=== PATIENT | male | born 1995 | race African-American/Black ===

== ENCOUNTER 2016-11-24 03:11 | Emergency (ER) | payer SELFPAY ==
[2016-11-24] MEDS ORDERED: GUAIFENESIN/D-METHORPHAN (200-20 MG) SYRUP 10 ML PO ONE (03:34)
--- NOTE | 2016-11-24 04:14 | ER Document Report ---
ED Respiratory Problem - General Chief Complaint: Cold Symptoms Stated Complaint: FLU LIKE SYMPTOMS Mode of Arrival: Ambulatory Information source: Patient Notes: Patient is a 21-year-old -[place] male who presents to the ER today for 5-6 days of cough with sinus pressure that is worsening, he admits to chills but does not know if he's had a fever or not. He denies any shortness of breath or wheezing, but states to productive cough that keeps him awake at night and is very annoying throughout the day. He has been taking over-the- counter cough suppressants which are not helping very much says. He denies any history of asthma, chest pain. He also admits to "horrible acne" on his face that he has not been able to get rid of with [id number] acne treatments. He states that he does shave. TRAVEL OUTSIDE OF THE [place] IN LAST 30 DAYS: No - Related Data Allergies/Adverse Reactions: No Known Allergies Allergy (Verified 11/24/16 03:14) Past Medical History - General Information source: Patient - Social History Smoking Status: Current Every Day Smoker Chew tobacco use (# tins/day): No Frequency of alcohol use: None Drug Abuse: None Family History: Reviewed & Not Pertinent Patient has suicidal ideation: No Patient has homicidal ideation: No Renal/ Medical History: Denies: Hx Peritoneal Dialysis Psychiatric Medical History: Denies: Hx Depression Past Surgical History: Reports: Hx Orthopedic Surgery - right ankle - Immunizations Hx Diphtheria, Pertussis, Tetanus Vaccination: Yes - [id number] Review of Systems - Review of Systems Constitutional: See HPI EENT: See HPI Cardiovascular: No symptoms reported Respiratory: See HPI Gastrointestinal: No symptoms reported Genitourinary: No symptoms reported Male Genitourinary: No symptoms reported Musculoskeletal: No symptoms reported Skin: No symptoms reported Hematologic/Lymphatic: No symptoms reported Neurological/Psychological: No symptoms reported Physical Exam - Vital signs Vitals: Temp Pulse Resp BP Pulse Ox 98.1 F 105 H 17 143/99 H 98 11/24/16 03:16 11/24/16 03:16 11/24/16 03:16 11/24/16 03:16 11/24/16 03:16 - Notes Notes: PHYSICAL EXAMINATION: GENERAL: Mildly ill-appearing, but in no acute distress. HEAD: Atraumatic, normocephalic. EYES: Pupils equal round and reactive to light, extraocular movements intact, sclera anicteric, conjunctiva are normal. ENT: Right ear canal filled with wax, cannot visualize TM, left ear canal without erythema or foreign body, left TM pearly ley with good bony landmarks, nares with mucoid discharge, oropharynx erythematous without exudates. Moist mucous membranes. Maxillary and frontal sinuses tender to palpation NECK: Normal range of motion, supple with bilateral cervical lymphadenopathy , nontender LUNGS: CTAB and equal. No wheezes rales or rhonchi. HEART: Regular rate and rhythm without murmurs ABDOMEN: Soft, no tenderness. No guarding, no rebound EXTREMITIES: Normal range of motion, no pitting edema. No cyanosis. NEUROLOGICAL: Cranial nerves grossly intact. Normal sensory/motor exams. PSYCH: Normal mood, normal affect. SKIN: Warm, Dry, normal turgor, cystic acne with large papules, erythema and scarring noted to chin and bilateral cheeks of face Course - Re-evaluation Re-evalutation: 11/24/16 05:56 Influenza was negative today. Patient will be treated for sinusitis and bronchitis due to length of time with symptoms, also I will start him on doxycycline for cystic acne and have him follow-up with his primary care provider. This is also the antibiotic I will choose for his sinusitis as well as a result treat both. I will also provide him with cough medication. - Vital Signs Vital signs: Temp Pulse Resp BP Pulse Ox 98.1 F 105 H 17 143/99 H 98 11/24/16 03:16 11/24/16 03:16 11/24/16 03:16 11/24/16 03:16 11/24/16 03:16 Discharge - Discharge Clinical Impression: Bronchitis, Cystic acne Sinusitis Qualifiers: Sinusitis location: unspecified location Chronicity: acute Recurrence: non- recurrent Qualified Code(s): J01.90 - Acute sinusitis, unspecified Condition: Stable Disposition: HOME, SELF-CARE Instructions: Acne ([facility]), Sinusitis ([facility]), Bronchitis ([facility]) Additional Instructions: Return immediately for any new or worsening symptoms. Follow up with primary care provider, call tomorrow to make followup appointment. Prescriptions: Hydrocodone Bit/Homatropine [Hycodan Syrup 5-1.5 mg/5 ml Ud Cup] 5 ml PO Q4HP PRN #120 ml PRN Reason: Doxycycline Hyclate 100 mg PO BID #60 capsule Fluticasone Propionate [Flonase Nasal Brickeys 50 Mcg/Brickeys 16 gm] 2 sprays NASL Q12 #1 inhaler Forms: Return to Work
[2016-11-24 06:17] VITALS: BP 123/63
== END 2016-11-24 05:50 | disposition home or self-care (01) ==
LOC: ER 03:11
DX: J40 Bronchitis, not specified as acute or chronic (principal); L70.0 Acne vulgaris; J01.90 Acute sinusitis, unspecified; R50.9 Fever, unspecified; F17.200 Nicotine dependence, unspecified, uncomplicated
CPT/HCPCS: 99283; 87804; J3490

== ENCOUNTER 2017-01-11 18:44 | Emergency (ER) | payer OTHER ==
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
[2017-01-11] MEDS ORDERED: HYDROCODONE/ACETAMINOPHEN 5-325 MG 6 TAB/DSPK PO PRN (22:59)
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
[2017-01-11 23:33] VITALS: BP 133/78
== END 2017-01-11 23:31 | disposition home or self-care (01) ==
LOC: ER 18:44
DX: M25.512 Pain in left shoulder (principal); S93.401A Sprain of unspecified ligament of right ankle, initial encounter; M25.571 Pain in right ankle and joints of right foot; S49.91XA Unspecified injury of right shoulder and upper arm, initial encounter; V43.62XA Car passenger injured in collision with other type car in traffic accident, initial encounter; Z98.890 Other specified postprocedural states
CPT/HCPCS: 99283; 73610; 73030; L1902

== ENCOUNTER 2017-02-03 00:59 | Emergency (ER) | payer OTHER ==
[2017-02-03] MEDS ORDERED: ALBUTEROL SULFATE HFA (90 MCG/PUFF) 8 GM MDI (1 MDI/ER DISP) IH ONE (04:30)
[2017-02-03] MEDS ORDERED: LEVOFLOXACIN 750 MG TABLET PO ONE (04:56)
--- NOTE | 2017-02-03 04:58 | ER Document Report ---
ED General - General Chief Complaint: Cough Stated Complaint: COUGH Notes: Patient is a pleasant 21-year-old male presents with 2 weeks of cough. Recently his been coughing up less sputum and having little bit increased shortness of breath upon exertion. He has no history of asthma. He is a smoker. No fevers. Vomited once with coughing. TRAVEL OUTSIDE OF THE [place] IN LAST 30 DAYS: No - Related Data Allergies/Adverse Reactions: No Known Allergies Allergy (Verified 02/03/17 01:31) Past Medical History - Social History Smoking Status: Current Every Day Smoker Frequency of alcohol use: None Drug Abuse: None Family History: Reviewed & Not Pertinent Renal/ Medical History: Denies: Hx Peritoneal Dialysis Psychiatric Medical History: Denies: Hx Depression Past Surgical History: Reports: Hx Orthopedic Surgery - right ankle - Immunizations Hx Diphtheria, Pertussis, Tetanus Vaccination: Yes - [id number] Review of Systems - Review of Systems Notes: My Normal Review Basic REVIEW OF SYSTEMS: CONSTITUTIONAL : Denies fever, chills, or sweats. EENT: Denies eye, ear, throat, or mouth pain or symptoms. Denies nasal or sinus congestion. RESPIRATORY: Recurrent coughing. GASTROINTESTINAL: Denies abdominal pain. Posttussive emesis x1. Denies constipation. Last BM: MUSCULOSKELETAL: Denies neck or back pain or joint pain or swelling. SKIN: Denies rash or skin lesions. NEUROLOGICAL: Denies altered mental status or loss of consciousness. Denies headache. Denies weakness or paralysis or loss of use of either side. Denies problems with gait or speech. Denies sensory or motor loss. ALL OTHER SYSTEMS REVIEWED AND NEGATIVE. Physical Exam - Vital signs Vitals: Temp Pulse Resp BP Pulse Ox 98.3 F 100 18 134/94 H 98 02/03/17 01:31 02/03/17 01:31 02/03/17 01:31 02/03/17 01:31 02/03/17 01:31 - Notes Notes: General Appearance: Well nourished, alert, cooperative, no acute distress, no obvious discomfort. Well-appearing Vitals: reviewed, See vital signs table. Head: no swelling or tenderness to the head Eyes: PERRL, EOMI, Conjuctiva clear Mouth: No decreasd moisture Throat: No tonsillar inflammation, No airway obstruction, No lymphadenopathy Neck: Supple, no neck tenderness, No thyromegaly Lungs: Focal wheezing and some diminishment in the right lung garner., No rales , No rhonci, No accessory muscle use, Heart: Normal rate, Regular rythm, No murmur, no rub Extremities: strength 5/5 in all extremities, good pulses in all extremities, no swelling or tenderness in the extremities, no edema. Skin: warm, dry, appropriate color, no rash Neuro: speech clear, oriented x 3, normal affect, responds appropriately to questions. Course - Vital Signs Vital signs: Temp Pulse Resp BP Pulse Ox 98.2 F 84 16 129/79 H 98 02/03/17 05:05 02/03/17 05:05 02/03/17 05:05 02/03/17 05:05 02/03/17 05:05 - Transfer of Care Notes: 02/03/17 06:33 Patient's chest x-ray is consistent with early pneumonia. This is consistent with what I heard on his lung auscultation. Patient will be placed on Levaquin. Will given him an inhaler to help with his cough. I encouraged him to return to ER immediately if has fevers, difficulty breathing, or feels that he is worsening. Patient agrees with plan will be discharged home. Dictation of this chart was performed using voice recognition software; therefore, there may be some unintended grammatical errors. Discharge - Discharge Clinical Impression: Pneumonia Qualifiers: Pneumonia type: due to unspecified organism Laterality: right Lung location: lower lobe of lung Qualified Code(s): J18.1 - Lobar pneumonia, unspecified organism Condition: Good Disposition: HOME, SELF-CARE Additional Instructions: PNEUMONIA: Your examination indicates that you have pneumonia. This is an infection of the lung tissue, usually caused by bacteria or a virus. Symptoms include cough, fever, shaking chills, chest pain, shortness of breath, and coughing up bloody sputum. Treatment for bacterial pneumonia includes rest, antibiotics for 10 to 14 days, increasing your clear liquid intake, a cool mist humidifier at your bedside, and fever medication. Often, a repeat chest X-ray is performed in a few weeks--even if you feel better--to ascertain whether the infection has completely resolved and no underlying lung problem is present. You should call the physician if you develop persistent vomiting, high fever that does not respond to fever medication, increasing shortness of breath , confusion, or lethargy. Also, failure to improve within two to three days is an indication for re-examination. ANTIBIOTIC THERAPY: You have been given an antibiotic prescription. It's important that you take all the medication, unless instructed otherwise by your physician. Failure to complete the entire course can result in relapse of your condition. Common side effects of antibiotics include nausea, intestinal cramping, or diarrhea. Women may develop vaginal yeast infections, and babies can get yeast (thrush) in the mouth following the use of antibiotics. Contact your physician if you develop significant side effects from this medication. Allergy to this antibiotic can result in hives, wheezing, faintness, or itching. If symptoms of allergy occur, stop the medication and call the doctor. LEVOFLOXACIN: You have been given an antibacterial agent, levofloxacin (Levaquin). This medicine is not related to the penicillins, sulfas, cephalosporins, or tetracyclines. It is often given to patients who are allergic to these drugs. It has been chosen for you either because other drugs are not appropriate, or because of the nature of your problem. Levaquin should not be taken with antacids, as these can decrease its effectiveness. It can be taken without regard to meals. LEVAQUIN SHOULD NOT BE TAKEN BY CHILDREN, NURSING WOMEN, OR WOMEN. Although Levaquin is usually well-tolerated, common side effects can include nausea and diarrhea. Contact your doctor if you experience any unusual symptoms while on this medication, such as joint pain or swelling, shortness of breath, wheezing, faintness, or hives. FOLLOW-UP CARE: If you have been referred to a physician for follow-up care, call the physician s office for an appointment as you were instructed or within the next two days. If you experience worsening or a significant change in your symptoms, notify the physician immediately or return to the Emergency Department at any time for re-evaluation. Please use the inhaler as 1 puff every 4 hours as needed for wheezing or cough. please return to the ER immediately if you develop difficulty breathing, fevers , or feel unwell. Prescriptions: Levofloxacin [Levaquin 750 mg Tablet] 750 mg PO DAILY #6 tablet Forms: Return to Work
[2017-02-03 05:12] VITALS: BP 129/79
== END 2017-02-03 05:12 | disposition home or self-care (01) ==
LOC: ER 00:59
DX: J18.1 Lobar pneumonia, unspecified organism (principal); R05 Cough; F17.200 Nicotine dependence, unspecified, uncomplicated
CPT/HCPCS: 99283; 71010; J3490

== ENCOUNTER 2017-03-15 21:40 | Emergency (ER) | payer SELFPAY ==
[2017-03-15] MEDS ORDERED: PENICILLIN V POTASSIUM 500 MG TABLET PO ONE (22:45)
[2017-03-15] MEDS ORDERED: OXYCODONE-ACETAMINOPHEN 5-325 MG TABLET PO ONE (22:46)
--- NOTE | 2017-03-15 22:48 | ER Document Report ---
HPI - HPI Patient complains to provider of: left-sided dental pain Pain Level: 4 Context: Patient is a 21-year-old male that comes emergency bone for chief complaint of dental pain, worse on the left upper side, symptoms have been worse since yesterday. He states he has known cavities, he denies ever having extracted teeth, he denies history of dental infections. He denies sore throat, fever, neck pain. - REPRODUCTIVE Reproductive: DENIES: : - DERM Skin Color: Normal Past Medical History - General Information source: Patient - Social History Smoking Status: Never Smoker Frequency of alcohol use: None Drug Abuse: None Lives with: Family Family History: Reviewed & Not Pertinent Patient has suicidal ideation: No Patient has homicidal ideation: No - Medical History Medical History: Negative Renal/ Medical History: Denies: Hx Peritoneal Dialysis Psychiatric Medical History: Denies: Hx Depression Past Surgical History: Reports: Hx Orthopedic Surgery - right ankle - Immunizations Hx Diphtheria, Pertussis, Tetanus Vaccination: Yes - [id number] Vertical Provider Document - CONSTITUTIONAL General Appearance: WD/WN, No Apparent Distress - INFECTION CONTROL TRAVEL OUTSIDE OF THE [place] IN LAST 30 DAYS: No - HEENT HEENT: Atraumatic, Normocephalic Mouth Diagram: 1 - Several dental cavities noted, no fractures or significant breakdown, no abscesses noted - RESPIRATORY Respiratory: Breath Sounds Normal, No Respiratory Distress O2 Sat by Pulse Oximetry: 97 - CARDIOVASCULAR Cardiovascular: Regular Rate, Regular Rhythm - GI/ABDOMEN Gastrointestinal: Abdomen Soft, Abdomen Non-Tender - MUSCULOSKELETAL/EXTREMETIES Musculoskeletal/Extremeties: MAEW, FROM, Non-Tender Course - Vital Signs Vital signs: Temp Pulse Resp BP Pulse Ox 98.7 F 102 H 22 H 149/90 H 97 03/15/17 21:42 03/15/17 21:42 03/15/17 21:42 03/15/17 21:42 03/15/17 21:42 Discharge - Discharge Clinical Impression: Pain, dental Condition: Stable Disposition: HOME, SELF-CARE Additional Instructions: Take antibiotics to completion as directed. Take the pain medication if needed. Follow-up with a dentist for additional management to prevent this from continuing to happen. Return to emergency department for swelling of the face or any other concerns Prescriptions: Hydrocodone/Acetaminophen [[place]abel 5-325 Tablet] 1 - 2 each PO Q4H PRN #10 tablet PRN Reason: Penicillin V Potassium [Penicillin Vk 500 mg Tablet] 500 mg PO BID #20 tablet Forms: Return to Work, Elevated Blood Pressure
[2017-03-15 23:19] VITALS: BP 135/83
== END 2017-03-15 23:14 | disposition home or self-care (01) ==
LOC: ER 21:40
DX: K02.9 Dental caries, unspecified (principal); K08.89 Other specified disorders of teeth and supporting structures
CPT/HCPCS: 99282

== ENCOUNTER 2017-04-11 02:57 | Emergency (ER) | payer SELFPAY ==
--- NOTE | 2017-04-11 04:58 | ER Document Report ---
HPI - HPI Pain Level: 2 Context: Patient is a 21-year-old male who presents emergency department complaining of acne on his face as well as . Patient states cyst on top of his head. Patient noticed this cyst on top side of the past 2 days with drainage. Nontender to palpation, no heat, denies any fevers, chills. Regarding his acne. Patient states that he has been previously evaluated here initiated on antibiotics and told to follow-up with dermatology. Patient states he never followed up with dermatology. - REPRODUCTIVE Reproductive: DENIES: : - DERM Skin Color: Normal Past Medical History - Social History Smoking Status: Current Every Day Smoker Family History: Reviewed & Not Pertinent Patient has suicidal ideation: No Patient has homicidal ideation: No Renal/ Medical History: Denies: Hx Peritoneal Dialysis Psychiatric Medical History: Denies: Hx Depression Past Surgical History: Reports: Hx Orthopedic Surgery - right ankle - Immunizations Hx Diphtheria, Pertussis, Tetanus Vaccination: Yes - [id number] Vertical Provider Document - CONSTITUTIONAL Agree With Documented VS: Yes Exam Limitations: No Limitations General Appearance: WD/WN, No Apparent Distress - INFECTION CONTROL TRAVEL OUTSIDE OF THE [place] IN LAST 30 DAYS: No - HEENT HEENT: Atraumatic, Normal ENT Exam, Normocephalic - RESPIRATORY O2 Sat by Pulse Oximetry: 98 - NEURO Level of Consciousness: Awake, Alert, Appropriate Motor/Sensory: No Motor Deficit, No Sensory Deficit - DERM Integumentary: Warm, Dry, No Rash Notes: acne with white heads without erythematous base noted over facial hair distribution, scalp area with evidence of hair absence without erythema, tenderness. small palpable area with minimal clear drainage. Course - Re-evaluation Re-evalutation: 04/11/17 06:09 Patient presents emergency department today with acne noted on the face and evidence of an ingrown hair on the top of his head. Antibiotics not without evidence of erysipelas or cellulitis. Patient indicated at this time patient is hemodynamic stable, no acute distress and afebrile. States he is taking antibiotics in the past but is declining any antibiotics for his acne today. Stable for discharge home. - Vital Signs Vital signs: Temp Pulse Resp BP Pulse Ox 97.5 F 74 18 157/95 H 98 04/11/17 03:01 04/11/17 03:01 04/11/17 03:01 04/11/17 03:01 04/11/17 03:01 Discharge - Discharge Clinical Impression: Acne, Ingrown hair Condition: Good Disposition: HOME, SELF-CARE Instructions: Cellulitis ([facility]) Forms: Elevated Blood Pressure Referrals: DERMATOLOGY [Provider Group] - Follow up as needed
[2017-04-11 05:27] VITALS: BP 126/78
== END 2017-04-11 05:19 | disposition home or self-care (01) ==
LOC: ER 02:57
DX: L70.9 Acne, unspecified (principal); L73.1 Pseudofolliculitis barbae; F17.200 Nicotine dependence, unspecified, uncomplicated
CPT/HCPCS: 99282

== ENCOUNTER 2018-05-16 07:18 | Emergency (ER) | payer SELFPAY ==
[2018-05-16 07:22] VITALS: BP 149/92
--- NOTE | 2018-05-16 07:46 | ER Document Report ---
HPI - HPI Patient complains to provider of: toothache Onset: Yesterday Onset/Duration: Gradual Pain Level: 5 Context: 23 yo male c/o lower left broken 3rd molar with decay and gum pain. No fever or facial swelling Associated Symptoms: None Exacerbated by: Other - chewing Relieved by: Denies Similar symptoms previously: No Recently seen / treated by doctor: No - ROS ROS below otherwise negative: Yes Systems Reviewed and Negative: Yes All other systems reviewed and negative - REPRODUCTIVE Reproductive: DENIES: : Past Medical History - General Information source: Patient - Social History Smoking Status: Current Every Day Smoker Frequency of alcohol use: None Drug Abuse: None Lives with: Family Family History: Reviewed & Not Pertinent - Medical History Medical History: Negative Renal/ Medical History: Denies: Hx Peritoneal Dialysis Psychiatric Medical History: Denies: Hx Depression Surgical Hx: Negative Past Surgical History: Reports: Hx Orthopedic Surgery - right ankle - Immunizations Hx Diphtheria, Pertussis, Tetanus Vaccination: Yes - [id number] Vertical Provider Document - CONSTITUTIONAL Agree With Documented VS: Yes Exam Limitations: No Limitations General Appearance: No Apparent Distress - INFECTION CONTROL TRAVEL OUTSIDE OF THE [place]. IN LAST 30 DAYS: No - HEENT Notes: swelling gingiva inside adjacent to 3rd lower left molar, very tender, partial tooth loss with decay. - NECK Neck: Supple. negative: Lymphadenopathy-Left, Lymphadenopathy-Right - NEURO Level of Consciousness: Awake - DERM Integumentary: No Rash Course - Vital Signs Vital signs: Temp Pulse Resp BP Pulse Ox 98.0 F 88 16 149/92 H 100 05/16/18 07:21 05/16/18 07:21 05/16/18 07:21 05/16/18 07:21 05/16/18 07:21 Discharge - Discharge Clinical Impression: Dental pain and decay, Dental abscess Condition: Good Disposition: HOME, SELF-CARE Instructions: Acetaminophen, [facility], Ibuprofen (General) ([facility]) , Penicillin V K ([facility]), Toothache ([facility]), Warm Packs ([facility]) Additional Instructions: Warm compress Penicillin Tylenol Motrin Lidocaine to numb the area See the dentist Prescriptions: Ibuprofen [Motrin 800 mg Tablet] 800 mg PO Q8HP PRN #30 tablet PRN Reason: Penicillin V Potassium [Penicillin Vk 500 mg Tablet] 500 mg PO QID #40 tablet Forms: Return to Work
[2018-05-16] MEDS ORDERED: PENICILLIN V POTASSIUM 500 MG TABLET PO ONE (08:08)
[2018-05-16] MEDS ORDERED: LIDOCAINE 2% VISCOUS SOLN 20 ML UDCUP PO ONE (08:08)
[2018-05-16] MEDS ORDERED: ACETAMINOPHEN 325 MG TABLET PO ONE (08:08)
[2018-05-16] MEDS ORDERED: ONDANSETRON 4 MG TAB.RAPDIS PO ONE (08:08)
[2018-05-16] MEDS ORDERED: IBUPROFEN 800 MG TABLET PO ONE (08:08)
== END 2018-05-16 08:40 | disposition home or self-care (01) ==
LOC: ER 07:18
DX: K04.7 Periapical abscess without sinus (principal); K08.89 Other specified disorders of teeth and supporting structures; K02.9 Dental caries, unspecified; F17.200 Nicotine dependence, unspecified, uncomplicated
CPT/HCPCS: 99282; S0119; J3490

== ENCOUNTER 2018-10-26 18:08 | Emergency (ER) | payer SELFPAY ==
[2018-10-26 18:20] VITALS: BP 169/94
--- NOTE | 2018-10-26 18:44 | ER Document Report ---
ED Oral Problem - General Chief Complaint: Toothache Stated Complaint: JAW SWELLING/TOOTH PAIN Time Seen by Provider: 10/26/18 18:25 Mode of Arrival: Ambulatory Information source: Patient Notes: 23-year-old male presented to ED for complaint of dental pain for the last few days. He states he cracked his tooth about 6 or 8 months ago but it was not hurting. He states he really needs some narcotics because he has no money to buy narcotics or antibiotics. He has no money to go to see a dentist. I explained to him that the emergency room does not use handout narcotics for dental pain that is chronic as he has been here multiple times for dental pain. I offered him a dental block for his pain and he refused he said he did not want any needles. I offered him ibuprofen and he refused stated he did not want ibuprofen. I offered him antibiotics and he said he would take a prescription for penicillin but did not want a antibiotic at this time because he cannot fill the prescription for couple days. I offered him viscous lidocaine for the pain and he refused that also. He states he was at a job orientation today and had to leave due to the pain. He states the [id number] medications are not helping him. Patient is alert oriented respirations regular and unlabored tyler rawls in full sentences. His dental pain is to tooth numbers 17. There is a broken tooth with minimal swelling around the tooth. TRAVEL OUTSIDE OF THE U.S. IN LAST 30 DAYS: No - HPI Patient complains to provider of: Toothache Onset: Other Onset: Gradual - Last few days Quality of pain: Sharp, Throbbing Severity: Moderate Pain Level: 4 Associated symptoms: Toothache Worsened by: Cold Relieved by: Nothing Similar symptoms previously: Yes Recently seen / treated by doctor/dentist: No - Related Data Allergies/Adverse Reactions: No Known Allergies Allergy (Verified 05/16/18 07:18) Past Medical History - General Information source: Patient - Social History Smoking Status: Never Smoker Chew tobacco use (# tins/day): No Frequency of alcohol use: None Drug Abuse: None Lives with: Spouse/Significant other Family History: Reviewed & Not Pertinent Patient has suicidal ideation: No Patient has homicidal ideation: No - Past Medical History Cardiac Medical History: Reports: None Pulmonary Medical History: Reports: None EENT Medical History: Reports: None Neurological Medical History: Reports: None Endocrine Medical History: Reports: None Renal/ Medical History: Reports: None Malignancy Medical History: Reports None GI Medical History: Reports: None Musculoskeletal Medical History: Reports Hx Musculoskeletal Trauma Skin Medical History: Reports None Psychiatric Medical History: Reports: None Traumatic Medical History: Reports: Hx Fractures - Right ankle Past Surgical History: Reports: Hx Orthopedic Surgery - right ankle - Immunizations Hx Diphtheria, Pertussis, Tetanus Vaccination: Yes - [id number] Review of Systems - Review of Systems Constitutional: No symptoms reported EENT: Dental problem Cardiovascular: No symptoms reported Respiratory: No symptoms reported Gastrointestinal: No symptoms reported Genitourinary: No symptoms reported Male Genitourinary: No symptoms reported Musculoskeletal: No symptoms reported Skin: No symptoms reported Hematologic/Lymphatic: No symptoms reported Neurological/Psychological: No symptoms reported Physical Exam - Vital signs Vitals: Temp Pulse Resp BP Pulse Ox 98.8 F 105 H 20 169/94 H 100 10/26/18 18:19 10/26/18 18:19 10/26/18 18:19 10/26/18 18:19 10/26/18 18:19 Interpretation: Normal - General General appearance: Appears well, Alert - HEENT Head: Normocephalic, Atraumatic Eyes: Normal Pupils: PERRL Mouth/Lips: Caries Teeth diagram: 1 - Cracked tooth with mild redness surrounding the tooth mild swelling to the gums surrounding the tooth - Respiratory Respiratory status: No respiratory distress Chest status: Nontender Breath sounds: Normal Chest palpation: Normal - Cardiovascular Rhythm: Regular Heart sounds: Normal auscultation Murmur: No - Abdominal Inspection: Normal Distension: No distension Bowel sounds: Normal Tenderness: Nontender Organomegaly: No organomegaly - Back Back: Normal, Nontender - Extremities General upper extremity: Normal inspection, Nontender, Normal color, Normal ROM, Normal temperature General lower extremity: Normal inspection, Nontender, Normal color, Normal ROM, Normal temperature, Normal weight bearing. No: Axel's sign - Neurological Neuro grossly intact: Yes Cognition: Normal Orientation: AAOx4 Laila Coma Scale Eye Opening: Spontaneous [place] Coma Scale Verbal: Oriented Laila Coma Scale Motor: Obeys Commands [place] Coma Scale Total: 15 Speech: Normal Motor strength normal: LUE, RUE, LLE, RLE Sensory: Normal - Psychological Associated symptoms: Normal affect, Normal mood - Skin Skin Temperature: Warm Skin Moisture: Dry Skin Color: Normal Course - Re-evaluation Re-evalutation: 10/26/18 18:46 Patient states his dental pain is so bad that he cannot stand it but he refuses ibuprofen, refuses a dental block, refuses a dose of antibiotic in the emergency room, and refuses viscous lidocaine. He states he just wants you to give him some narcotics for his pain and a prescription for penicillin that he can fill next week when he has money. I have explained to him that I will give him the prescription for the penicillin but I will not give him narcotics to take home at this time. Presentation is most consistent with likely an infected tooth. Airway is patent. Vitals within normal limits. Patient is able swallow without any difficulty. There is no significant facial swelling. No evidence of Kashif angina, apical abscess, or airway obstruction. Patient will be started on antibiotics. I've instructed to follow-up with dentistry as earliest ability for definitive management. At this time will discharge with return precautions and follow-up recommendations. Verbal discharge instructions given a the bedside and opportunity for questions given. Medication warnings reviewed. Patient is in agreement with this plan and has verbalized understanding of return precautions and the need for primary care follow-up in the next 24-72 hours. - Vital Signs Vital signs: Temp Pulse Resp BP Pulse Ox 98.8 F 105 H 20 169/94 H 100 10/26/18 18:19 10/26/18 18:19 10/26/18 18:19 10/26/18 18:19 10/26/18 18:19 Discharge - Discharge Clinical Impression: Pain due to dental caries Condition: Stable Disposition: HOME, SELF-CARE Additional Instructions: TOOTHACHE: Your pain is due to dental decay. The tooth must be repaired in order for you to feel better. You will, therefore, be referred to a dentist. We do not have dentists on the staff at [facility]. Severe swelling or drainage around a tooth usually means a dental abscess. This also requires evaluation and treatment by the dentist, but antibiotics may be prescribed while awaiting dental treatment. You should be rechecked immediately if you develop major swelling of the face, increasing pain, a lump in the jaw or gums, headache, difficulty swallowing, or fever. PENICILLIN V K: You have been given a prescription for Penicillin VK. Your physician has determined that this is the best antibiotic for your condition. Pen VK can be taken with meals, however more of the antibiotic gets into the bloodstream if it's taken on an empty stomach. Penicillin usually has no side effects. However, allergy to penicillins is common. If you have had an allergic reaction to any drug of the penicillin family, you should never take any other penicillin. Notify your doctor at once if you develop hives, itching, swelling, faintness, or shortness of breath. FOLLOW-UP CARE: You have been referred for follow-up care to the dentists listed below. Call the dentists office for an appointment as you were instructed or within the next two days. If you experience worsening or a significant change in your symptoms, notify the physician immediately or return to the Emergency Department at any time for re-evaluation. [facility] [address], [place] [facility] [address] [place] [address] [facility] [address] [facility] [address] [facility] ([facility]) [facility] [address] [email or web address] [address] [place] [address] Saturday- 8:00am to 5:00 pm Will see patients from other [facility]. Charges based on income and family size and accepts Medicare, Medicaid, and Insurances Will pull molars [facility] [id number] Hours of Operation 8:00 am - 4:30 pm weekdays The following dental offices accept Medicaid: [facility] Dr. Mohamud Dr. Andrade Dr. Langston Dr. Cheek Sudarshan Hahn, Renny, and Rob oral surgery Dr. Urena ([place]) Dr. Craven ([place]) [facility] Drs. Carter ([place]) Dr. Hartmann ([place]) [facility] Dr. Lara ([place]) Drs. Allen and ([place]) Medicaid Care Line Prescriptions: Penicillin V Potassium [Penicillin Vk 500 mg Tablet] 500 mg PO BID #20 tablet Forms: Elevated Blood Pressure
== END 2018-10-26 18:49 | disposition home or self-care (01) ==
LOC: ER 18:08
DX: K08.89 Other specified disorders of teeth and supporting structures (principal); K02.9 Dental caries, unspecified; R22.0 Localized swelling, mass and lump, head
CPT/HCPCS: 99283

== ENCOUNTER 2019-02-23 23:40 | Emergency (ER) | payer SELFPAY ==
[2019-02-24] MEDS ORDERED: ONDANSETRON 4 MG TAB.RAPDIS PO ONE (00:22)
--- NOTE | 2019-02-24 00:22 | ER Document Report ---
ED Medical Screen (RME) - General Chief Complaint: Abdominal Pain Stated Complaint: ABDOMINAL PAIN Time Seen by Provider: 02/24/19 00:21 Mode of Arrival: Ambulatory Information source: Patient Notes: 23-year-old male presented to ED for complaint of abdominal pain and headache has been feeling really sick all day. She is he states that he has been nauseated all day but is only vomited x1 but has not been able to eat or drink today. He states he is also had diarrhea stools x2. The only medical history he has is a fractured ankle with surgery for that. States he does not smoke drinks maybe monthly and he works at construction. He is alert oriented respirations regular and unlabored abdomen is soft tender to palpation with active bowel sounds. Lungs are clear to auscultation. I have greeted and performed a rapid initial assessment of this patient. A comprehensive ED assessment and evaluation of the patient, analysis of test results and completion of medical decision making process will be conducted by an additional ED providers. TRAVEL OUTSIDE OF THE U.S. IN LAST 30 DAYS: No - Related Data Allergies/Adverse Reactions: No Known Allergies Allergy (Verified 05/16/18 07:18) Past Medical History Renal/ Medical History: Denies: Hx Peritoneal Dialysis Musculoskeltal Medical History: Reports Hx Musculoskeletal Trauma Psychiatric Medical History: Denies: Hx Depression Traumatic Medical History: Reports: Hx Fractures - Right ankle Past Surgical History: Reports: Hx Orthopedic Surgery - right ankle - Immunizations Hx Diphtheria, Pertussis, Tetanus Vaccination: Yes - [id number] Physical Exam - Vital signs Vitals: Temp Pulse Resp BP Pulse Ox 98.3 F 84 14 138/88 H 100 02/23/19 23:58 02/23/19 23:58 02/23/19 23:58 02/23/19 23:58 02/23/19 23:58 Course - Vital Signs Vital signs: Temp Pulse Resp BP Pulse Ox 98.3 F 84 14 138/88 H 100 02/23/19 23:58 02/23/19 23:58 02/23/19 23:58 02/23/19 23:58 02/23/19 23:58
[2019-02-24] MEDS ORDERED: NORMAL SALINE 1000 ML 1,000 ML IV ONE (00:23)
[2019-02-24 01:05] LABS: ABSOLUTE BASOPHILS # (AUTO) 0.1 10^3/uL (0.0-0.2); ABSOLUTE EOSINOPHILS # (AUTO) 0.1 10^3/uL (0.0-0.6); ABSOLUTE LYMPHOCYTES (AUTO) 2.6 10^3/uL (0.5-4.7); ABSOLUTE MONOCYTES (AUTO) 0.6 10^3/uL (0.1-1.4); ABSOLUTE NEUT (AUTO) 7.9 10^3/uL (1.7-8.2); BASOPHILS % (AUTO) 0.5 % (0-2); EOSINOPHILS % (AUTO) 0.9 % (0-6); HEMATOCRIT 45.9 % (37.9-51.0); HEMOGLOBIN 15.7 g/dL (13.5-17.0); MEAN CORPUSCULAR HEMOGLOBIN 29.7 pg (27.0-33.4); MEAN CORPUSCULAR HGB CONC 34.2 g/dL (32.0-36.0); MEAN CORPUSCULAR VOLUME 87 fl (80-97); MONOCYTES % (AUTO) 5.3 % (3-13); PLATELET COUNT 286 10^3/uL (150-450); RED BLOOD COUNT 5.28 10^6/uL (4.35-5.55); RED CELL DISTRIBUTION WIDTH 15.3 % (11.5-14.0); SEGMENTED NEUTROPHILS % (AUTO) 70.3 % (42-78); TOTAL CELLS COUNTED % (AUTO) 100 %; WHITE BLOOD COUNT 11.2 10^3/uL (4.0-10.5)
[2019-02-24 01:19] LABS: APPEARANCE,URINE SLIGHTLY-CLOUDY; BILIRUBIN,URINE NEGATIVE (NEGATIVE); COLOR,URINE YELLOW; GLUCOSE, URINE NEGATIVE (NEGATIVE); KETONES,URINE NEGATIVE (NEGATIVE); LEUKOCYTE ESTERASE,URINE NEGATIVE (NEGATIVE); NITRITE,URINE NEGATIVE (NEGATIVE); PROTEIN,URINE NEGATIVE (NEGATIVE); URINE SPECIFIC GRAVITY 1.014; UROBILINOGEN,URINE NEGATIVE mg/dL (<2.0)
[2019-02-24 02:03] LABS: ALANINE AMINOTRANSFERASE 24 U/L (21-72); ALBUMIN 4.7 g/dL (3.5-5.0); ALKALINE PHOSPHATASE 56 U/L (38-126); ANION GAP 8 (5-19); ASPARTATE AMINO TRANSFERASE 23 U/L (17-59); BILIRUBIN,DIRECT 0.3 mg/dL (0.0-0.4); BILIRUBIN,TOTAL 0.3 mg/dL (0.2-1.3); BLOOD UREA NITROGEN 9 mg/dL (7-20); CALCIUM 10.4 mg/dL (8.4-10.2); CARBON DIOXIDE 29 mmol/L (22-30); CHLORIDE 103 mmol/L (98-107); CREATINE KINASE 184 U/L (55-170); GLUCOSE 94 mg/dL (75-110); POTASSIUM 4.7 mmol/L (3.6-5.0); SODIUM 139.6 mmol/L (137-145)
[2019-02-24] MEDS ORDERED: METOCLOPRAMIDE HCL ORAL SOLN 10 MG/10 ML UDCUP PO ONE (02:05)
[2019-02-24] MEDS ORDERED: SUCRALFATE 1 GM TABLET PO ONE (02:05)
[2019-02-24] MEDS ORDERED: LIDOCAINE 2% VISCOUS SOLN 20 ML UDCUP PO ONE (02:05)
[2019-02-24] MEDS ORDERED: FAMOTIDINE 20 MG TABLET PO ONE (02:05)
[2019-02-24] MEDS ORDERED: MAG HYDROX/AL HYDROX/SIMETH SUSP 30 ML UDCUP PO ONE (02:05)
[2019-02-24] MEDS ORDERED: METOCLOPRAMIDE HCL INJ/PF 10 MG/2 ML SDV IV ONE (02:06)
--- NOTE | 2019-02-24 02:06 | ER Document Report ---
ED General - General Chief Complaint: Abdominal Pain Stated Complaint: ABDOMINAL PAIN Time Seen by Provider: 02/24/19 00:21 Mode of Arrival: Ambulatory Notes: Patient is a 23-year-old male without chronic medical problems, no prior abdominal surgical history who presents with 12 hours of intermittent gastric abdominal discomfort, one episode of nausea and vomiting, several loose bowel movements and a headache. States that his symptoms started shortly after waking up this morning, gradually progressed throughout the day while at work prompting his boss to send him home from work and asked him to come to the hospital for evaluation. Patient describes his symptoms as being gradual in onset, worsening since onset, mild to moderate in severity. His headache is described as a global, throbbing, aching discomfort that again was a gradual onset headache similar to headaches he has had in the past. He has been able to tolerate oral intake since his single episode of nonbilious vomiting. Denies chest pain, sh ortness of breath. Denies a history of similar symptoms in the past. Has not seen his primary care physician regarding today's concerns. TRAVEL OUTSIDE OF THE [place] IN LAST 30 DAYS: No - Related Data Allergies/Adverse Reactions: No Known Allergies Allergy (Verified 05/16/18 07:18) Past Medical History - General Information source: Patient - Social History Smoking Status: Never Smoker Frequency of alcohol use: None Drug Abuse: None Lives with: Spouse/Significant other Family History: Reviewed & Not Pertinent Patient has suicidal ideation: No Patient has homicidal ideation: No Renal/ Medical History: Denies: Hx Peritoneal Dialysis Musculoskeletal Medical History: Reports Hx Musculoskeletal Trauma Psychiatric Medical History: Denies: Hx Depression Traumatic Medical History: Reports: Hx Fractures - Right ankle Past Surgical History: Reports: Hx Orthopedic Surgery - right ankle - Immunizations Hx Diphtheria, Pertussis, Tetanus Vaccination: Yes - [id number] Review of Systems - Review of Systems Notes: Constitutional: Negative for fever. HENT: Negative for sore throat. Eyes: Negative for visual changes. Cardiovascular: Negative for chest pain. Respiratory: Negative for shortness of breath. Gastrointestinal: Positive for epigastric abdominal pain, nausea, vomiting, loose stools Genitourinary: Negative for dysuria. Musculoskeletal: Negative for back pain. Skin: Negative for rash. Neurological: Positive headache 10 point ROS negative except as marked above and in HPI. Physical Exam - Vital signs Vitals: Temp Pulse Resp BP Pulse Ox 98.3 F 84 14 138/88 H 100 02/23/19 23:58 02/23/19 23:58 02/23/19 23:58 02/23/19 23:58 02/23/19 23:58 Interpretation: Normal Notes: PHYSICAL EXAMINATION: GENERAL: Well-appearing, well-nourished and in no acute distress. HEAD: Atraumatic, normocephalic. EYES: Pupils equal round and reactive to light, extraocular movements intact, sclera anicteric, conjunctiva are normal. ENT: nares patent, oropharynx clear without exudates. Mildly dry mucous membranes. NECK: Normal range of motion, supple without lymphadenopathy LUNGS: Breath sounds clear to auscultation bilaterally and equal. No wheezes rales or rhonchi. HEART: Regular rate and rhythm without murmurs ABDOMEN: Soft, nontender, normoactive bowel sounds. No guarding, no rebound. No masses appreciated. EXTREMITIES: Normal range of motion, no pitting or edema. No cyanosis. NEUROLOGICAL: Face symmetric. Tongue protrudes midline. Extraocular motions intact. Pupils are 2 mm and equally reactive. Normal speech, normal gait. 5 out of 5 strength in both the distal and proximal upper and lower extremities bilaterally. Sensation is grossly intact throughout. Finger to nose testing normal. Pronator drift normal. PSYCH: Normal mood, normal affect. SKIN: Warm, Dry, normal turgor, no rashes or lesions noted. Course - Re-evaluation Re-evalutation: 02/24/19 02:05 Patient presents with epigastric abdominal pain with associated reflux symptoms most consistent with likely gastritis. Patient has no focal abdominal tenderness on examination. Right upper quadrant ultrasound does not demonstrate any evidence of acute cholecystitis or cholelithiasis. Lipase is normal. No LFT changes. Based on history and exam, I do not suspect ACS, pulmonary embolus, SBO, mesenteric ischemia, acute pancreatitis, biliary pathology, or an abdominal aortic dissection. Patient has had improvement of symptoms here with a GI cocktail. At this time will discharge with return precautions and follow-up recommendations. Verbal discharge instructions given a the bedside and opportunity for questions given. Medication warnings reviewed. Patient is in agreement with this plan and has verbalized understanding of return precautions and the need for primary care follow-up in the next 24-72 hours. - Vital Signs Vital signs: Temp Pulse Resp BP Pulse Ox 98.3 F 84 14 138/88 H 100 02/23/19 23:58 02/23/19 23:58 02/23/19 23:58 02/23/19 23:58 02/23/19 23:58 - Laboratory Result Diagrams: 02/24/19 00:45 02/24/19 00:45 Laboratory results interpreted by me: 02/24/19 02/24/19 02/24/19 00:45 00:45 00:45 WBC 11.2 H RDW 15.3 H Calcium 10.4 H Creatine Kinase 184 H Lipase Urine Blood SMALL H 02/24/19 00:45 WBC RDW Calcium Creatine Kinase Lipase 21.0 L Urine Blood - Diagnostic Test Radiology reviewed: Reports reviewed Discharge - Discharge Clinical Impression: Nausea and vomiting Qualifiers: Vomiting type: unspecified Vomiting Intractability: non-intractable Qualified Code(s): R11.2 - Nausea with vomiting, unspecified Headache Qualifiers: Headache type: unspecified Headache chronicity pattern: acute headache Intractability: not intractable Qualified Code(s): R51 - Headache Gastritis Qualifiers: Gastritis type: unspecified gastritis Chronicity: acute Gastritis bleeding: presence of bleeding unspecified Qualified Code(s): K29.00 - Acute gastritis without bleeding Condition: Good Disposition: HOME, SELF-CARE Additional Instructions: Your symptoms appear to be most consistent with stomach or upper intestinal irritation. Please begin taking famotidine 40 mg in the morning and 40 mg at night. Take Carafate prior to meals. You may also take medicine such as Pepto- Bismol or Tums to assist with your pain. Please return to emergency department immediately if you have worsening of your pain, shortness of breath, vomiting, become unable to exert yourself due to pain or difficulty breathing, you pass out, or have any pain that radiates into your arms, jaw, or back. Please also return if you have any additional symptoms that are concerning to you. As we have discussed, the most important thing is lifestyle changes. You need to avoid smoking, sodas, tea, coffee, alcohol, spicy foods, and acidic foods such as citrus fruits, tomato based products, berries, and most fruit juices. You have been seen in the Emergency Department (ED) for a headache. Please use Tylenol (acetaminophen)as needed for symptoms, but only as written on the box. As we have discussed, please follow up with your primary care doctor as soon as possible regarding today's ED visit and your headache symptoms. Call your doctor or return to the ED if you have a worsening headache, sudden and severe headache, confusion, slurred speech, facial droop, weakness or numbness in any arm or leg, extreme fatigue, or other symptoms that concern you. Prescriptions: Famotidine 40 mg PO BID #60 tablet Ondansetron [Zofran Odt 4 mg Tablet] 1 - 2 tab PO Q4H PRN #15 tab.rapdis PRN Reason: For Nausea/Vomiting Sucralfate [Carafate 1 gm Tablet] 1 gm PO ACHS #120 tablet
--- NOTE | 2019-02-24 03:39 | RADIOLOGY REPORT (SQ) ---
EXAM DESCRIPTION: US ABDOMEN LIMITED COMPLETED DATE/TME: 02/24/2019 02:02 CLINICAL HISTORY: 23 years Male, epigastric ab pain Comparison: None. LIMITATIONS: None. FINDINGS: Gallbladder, negative sonographic Duenas's test, liver, a 0.2-cm diameter common bile duct, no intrahepatic ductal dilation, 11-cm right kidney, partially obscured pancreas, visualized vasculature/abdominal aorta, and no significant ascites appear otherwise unremarkable. IMPRESSION: Normal RUQ-Abdominal Sonogram.
[2019-02-24 04:16] VITALS: BP 132/93
== END 2019-02-24 04:19 | disposition home or self-care (01) ==
LOC: ER 23:40
DX: K29.00 Acute gastritis without bleeding (principal); R10.13 Epigastric pain; R11.2 Nausea with vomiting, unspecified; R19.4 Change in bowel habit; R51 Headache
CPT/HCPCS: 99284; 96361; 96374; 36415; 82550; 83690; 85025; 80053; 81001; 76705; S0119; J3490; J2765; J7030

== ENCOUNTER 2019-03-06 23:39 | Emergency (ER) | payer SELFPAY ==
[2019-03-07] MEDS ORDERED: DOCUSATE SODIUM 100 MG CAPSULE RT_EAR ONE (01:28)
--- NOTE | 2019-03-07 01:49 | ER Document Report ---
ED General - General Chief Complaint: Ear Pain Stated Complaint: EAR PROBLEM Time Seen by Provider: 03/07/19 01:23 Mode of Arrival: Ambulatory Information source: Patient TRAVEL OUTSIDE OF THE [place] IN LAST 30 DAYS: No - HPI Patient complains to provider of: Right ear discomfort and difficulty hearing Onset: Last week Onset/Duration: Persistent Quality of pain: Achy Severity: Mild Pain Level: 2 Associated symptoms: Earache. denies: Chills, Fever Exacerbated by: Denies Relieved by: Denies Similar symptoms previously: No Recently seen / treated by doctor: No Notes: 23-year-old -[place] male coming in today with right ear discomfort and difficulty hearing. He was found to have otitis externa back on the of last month when he was here. He has been using his medication as directed but still continues to have pain and pressure and decreased hearing. - Related Data Allergies/Adverse Reactions: No Known Allergies Allergy (Verified 03/02/19 17:12) Past Medical History - General Information source: Patient - Social History Smoking Status: Never Smoker Frequency of alcohol use: None Drug Abuse: None Family History: Reviewed & Not Pertinent Patient has suicidal ideation: No Patient has homicidal ideation: No Renal/ Medical History: Denies: Hx Peritoneal Dialysis Musculoskeletal Medical History: Reports Hx Musculoskeletal Trauma Psychiatric Medical History: Denies: Hx Depression Traumatic Medical History: Reports: Hx Fractures - Right ankle Past Surgical History: Reports: Hx Orthopedic Surgery - right ankle - Immunizations Hx Diphtheria, Pertussis, Tetanus Vaccination: Yes - [id number] Review of Systems - Review of Systems Notes: Constitutional: No fevers. No chills. EENT: No eye redness. No eye pain. + right ear pain. No sore throat. Cardiovascular: No chest pain. No palpitations. Respiratory: No cough. No shortness of breath. No respiratory distress. Gastrointestinal: No abdominal pain. No nausea, vomiting, or diarrhea. Genitourinary: Atraumatic. No lesions. No pain. No discharge. Musculoskeletal: Atraumatic. No swelling. No deformities. Skin: No rash or lesions. Lymphatic: No swollen lymph nodes. Physical Exam - Vital signs Vitals: Temp Pulse Resp BP Pulse Ox 98.7 F 95 16 131/78 H 97 03/07/19 00:20 03/07/19 00:20 03/07/19 00:20 03/07/19 00:20 03/07/19 00:20 - Notes Notes: General: Well-developed, well-nourished. In no acute distress. Non-toxic appearing. Cardiac: Well-perfused. Regular rate and rhythm. No murmurs, rubs, or gallops. Pulmonary: No respiratory distress. No cyanosis. Bilateral lung fiels are clear to auscultation. Abdominal: Non-distended. Non-rigid. Bowels sounds are present in all four quadrants. No guarding or rebound. HEENT: Head is atraumatic. Conjunctivae not reddened. No tearing. PERRL. EOMI. Orbits atraumatic. No periorbital swelling or erythema. Oropharynx is without erythema, swelling, or exudates. Right ear is examined. There is no swelling or tenderness of the pinna. No tenderness with palpation of the external ear. No mastoid tenderness or bogginess. Canal does not look swollen or erythematous or exudative. There is a cerumen impaction present. Examination of the left ear is completely normal. Neck: Supple. No adenopathy. No meningismus. Dermatologic: Warm with good turgor. No rash. Atraumatic. Chest: Atraumatic. No chest wall tenderness to palpation. Musculoskeletal: Moves all extremities well. No range of motion deficits. no muscular or joint tenderness. No paraspinal muscle tenderness. no midline spinal tenderness or step-off. Genitourinary: Examination deferred Neurologic: No gross neurologic deficits. Psychiatric: Normal mood. Course - Re-evaluation Re-evalutation: 03/07/19 02:15 Emy LINDA was able to completely clear the right ear cerumen impaction. The canal looks a little bit erythematous. I encouraged him to continue his eardrops were prescribed for his otitis externa on his last visit just to make sure that an infection did not take place. - Vital Signs Vital signs: Temp Pulse Resp BP Pulse Ox 98.7 F 95 16 131/78 H 97 03/07/19 00:20 03/07/19 00:20 03/07/19 00:20 03/07/19 00:20 03/07/19 00:20 Discharge - Discharge Clinical Impression: Cerumen impaction Qualifiers: Laterality: right Qualified Code(s): H61.21 - Impacted cerumen, right ear Condition: Good Disposition: HOME, SELF-CARE Instructions: Cerumen Impaction ([facility]) Referrals: [facility] [Provider Group] - Follow up as needed
[2019-03-07 02:27] VITALS: BP 129/74
== END 2019-03-07 02:28 | disposition home or self-care (01) ==
LOC: ER 23:39
DX: H61.21 Impacted cerumen, right ear (principal); H92.01 Otalgia, right ear; H93.299 Other abnormal auditory perceptions, unspecified ear
CPT/HCPCS: 99282